=== PATIENT | female | born 2000 | race Two or more races ===

== ENCOUNTER 2024-08-18 20:15 | Emergency (ER) | payer OTHER ==
[~2024-08-18] VITALS: Ht 165.1 cm; Wt 59.0 kg
[2024-08-18] MEDS ORDERED: FAMOTIDINE/PF 20 MG in 0.9 % SODIUM CHLORIDE 8 ML IV PUSH STA (20:34)
[2024-08-18] MEDS ORDERED: ONDANSETRON HCL 2 MG/ML VIAL ONE (20:36)
[2024-08-18] MEDS ORDERED: HYOSCYAMINE SULFATE 0.125 MG TAB.SUBL ONE (20:36)
[2024-08-18] MEDS ORDERED: FAMOTIDINE/PF 20 MG/2 ML VIAL ONE (20:37)
[2024-08-18] MEDS ORDERED: 0.9 % SODIUM CHLORIDE 1,000 ML IV SCH (20:45)
[2024-08-18] MEDS ORDERED: HYOSCYAMINE SULFATE 0.125 MG TAB.SUBL SL ONE (20:45)
[2024-08-18] MEDS ORDERED: ONDANSETRON HCL 2 MG/ML VIAL IV ONE (20:45)
[2024-08-18 21:05] LABS: HEMATOCRIT 36.8 % (36.0-45.00); HEMOGLOBIN 12.3 g/dL (12.0-15.00); MEAN CELL VOLUME 81.6 fL (80.00-100.00); MEAN CORPUSCULAR HEMOGLOBIN 27.3 pg (27.00-32.0); MEAN CORPUSCULAR HGB CONC 33.5 g/dl (32.0-36.0); PLATELET COUNT 207 K/uL (150-450); RED BLOOD COUNT 4.51 M/uL (4.00-6.00); RED CELL DISTRIBUTION WIDTH 15.5 % (11.5-14.5)
[2024-08-18 21:29] LABS: ALBUMIN 4.1 gm/dL (3.4-5.0); BILIRUBIN TOTAL 0.32 mg/dL (0.3-1.2); CREATININE SERUM 0.78 mg/dL (0.55-1.02); GFR 89.99; GLOBULINA 3.7 G/DL (2.4-3.5); POTASSIUM 3.25 mEq/L (3.5-5.1); TOTAL PROTEIN 7.8 gm/dL (6.4-8.2)
[2024-08-18] MEDS ORDERED: ONDANSETRON ODT8 MG PO (22:32)
[2024-08-18] MEDS ORDERED: PEPCID AC20 MG PO (22:32)
== END 2024-08-18 22:59 | disposition home or self-care (01) ==
LOC: ER 20:16
PROVIDERS: General Practice
DX: R11.2 Nausea with vomiting, unspecified (principal); K52.9 Noninfective gastroenteritis and colitis, unspecified; R11.10 Vomiting, unspecified; Z20.822 Contact with and (suspected) exposure to COVID-19

== ENCOUNTER → 2024-08-26 | Emergency (ER) | payer OTHER ==
[~2024-08-26] VITALS: Ht 165.1 cm; Wt 56.7 kg
[~2024-08-26] MED LIST: CEFTRIAXONE SODIUM 1,000 MG VIAL IV STA; CEFTRIAXONE SODIUM 1,000 MG VIAL ONE; DEXAMETHASONE SODIUM PHOSPHATE 4 MG/ML VIAL IV STA; DEXAMETHASONE SODIUM PHOSPHATE 4 MG/ML VIAL ONE; DEXAMETHASONE4 MG PO; KETOROLAC TROMETHAMINE 15 MG VIAL IV STA; KETOROLAC TROMETHAMINE 30 MG VIAL ONE; ONDANSETRON ODT8 MG PO; PEPCID AC20 MG PO; XYZAL5 MG PO
== END | disposition home or self-care (01) ==
LOC: ER 17:16
DX: J04.0 Acute laryngitis (principal)
CPT/HCPCS: 96365; 99282; J0696; J1100; J1885

== ENCOUNTER 2025-03-09 14:43 | Emergency (ER) | payer OTHER ==
[~2025-03-09] VITALS: Ht 165.1 cm; Wt 59.0 kg
[~2025-03-09 14:43] MED LIST changes: -CEFTRIAXONE SODIUM 1,000 MG VIAL IV STA; -CEFTRIAXONE SODIUM 1,000 MG VIAL ONE; -DEXAMETHASONE SODIUM PHOSPHATE 4 MG/ML VIAL IV STA; -DEXAMETHASONE SODIUM PHOSPHATE 4 MG/ML VIAL ONE; -KETOROLAC TROMETHAMINE 15 MG VIAL IV STA; -KETOROLAC TROMETHAMINE 30 MG VIAL ONE
[2025-03-09 15:52] VITALS: BP 120/73; O2SAT 100
[2025-03-09] MEDS ORDERED: KETOROLAC TROMETHAMINE 30 MG VIAL IV ONE (17:30)
[2025-03-09] MEDS ORDERED: ORPHENADRINE CITRATE 30 MG/ML AMPUL IV ONE (17:30)
[2025-03-09] MEDS ORDERED: DEXAMETHASONE SODIUM PHOSP/PF 10 MG/ML VIAL IV ONE (17:30)
[2025-03-09 18:14] LABS: BASO % 0.1 % (0.1-1.2); EOS # 0.05 (0.04-0.54); EOS % 0.6 % (0.7-7.0); LYMPH # 1.66 (1.18-3.74); LYMPH % 20.4 % (19.3-53.1); MEAN PLATELET VOLUME 11.50 fl (9.4-12.4); MONO # 0.39 (0.24-0.82); MONO % 4.8 % (4.7-12.5); NEUT # 6.01 (1.56-6.13); NEUT % 73.9 % (34.0-71.1); RED CELL DISTRIBUTION WIDTH 13.4 % (11.6-14.4)
[2025-03-09 18:45] LABS: ALT/SGPT 22.0 U/L (12-78); AST/SGOT 16.0 U/L (15-37); BILIRUBIN TOTAL 0.56 mg/dL (0.3-1.2); BUN CREA RATIO 14.0 (7.0-25.0); CREATININE SERUM 0.85 mg/dL (0.55-1.02); GFR 80.84; GLOBULINA 4.1 G/DL (2.4-3.5); GLUCOSE FASTING 89.0 mg/dL (65-100); OSMOLALITY SERUM 277.0 MOSM/KG (275-295)
[2025-03-09] MEDS ORDERED: KETO10TA2 PO (21:54)
== END 2025-03-09 22:11 | disposition home or self-care (01) ==
LOC: ER 14:43
PROVIDERS: Student in an Organized Health Care Education/Training Program
DX: R22.1 Localized swelling, mass and lump, neck (principal)